=== PATIENT | female | born 1965 | race Caucasian/White ===

== ENCOUNTER 2019-11-16 10:49 | Outpatient (REF) | payer OTHER, SELFPAY ==
[2019-11-16 16:32] LABS: COVID-19 Test Negative (Negative)
== END 2019-11-16 10:50 | disposition home or self-care (01) ==
LOC: HO.LABR 10:49
PROVIDERS: PCP Nurse Practitioner Family; Visit Provider Internal Medicine
DX: Z20.828 Contact with and (suspected) exposure to other viral communicable diseases (principal)
CPT/HCPCS: 36415; 87635

== ENCOUNTER 2019-12-21 13:51 | Outpatient (REF) | payer OTHER, SELFPAY ==
[2019-12-21 14:48] LABS: MANUAL DIFF FLAG NO
[2019-12-21 14:57] LABS: Basophils Absolute Auto 0.1 X10*3/uL (0.0-0.2); Basophils Percent Auto 0.7 % (0-2); Eosinophils Absolute Auto 0.3 X10*3/uL (0.0-0.4); Eosinophils Percent Auto 3.3 % (0-4); Hematocrit 39.5 % (37-47); Hemoglobin 13.2 g/dl (12.0-16.0); Imm Gran Abs Auto 0.07 X10*3/uL (0.00-0.03); Imm Gran Pct Auto 0.7 % (0.0-0.4); Lymphocytes Absolute Auto 3.2 X10*3/uL (1.2-4.9); Lymphocytes Percent Auto 33.4 % (20-40); Mean Corpuscular HGB Conc 33.4 g/dl (31.0-35.0); Mean Corpuscular Volume 95.6 fL (80-98); Mean Platelet Volume 11.2 fL (9.4-12.3); Monocytes Absolute Auto 0.8 X10*3/uL (0.1-1.2); Monocytes Percent Auto 7.9 % (2-11); Neutrophils Absolute Auto 5.2 X10*3/uL (2.0-8.3); Platelet Count 262 X10*3/uL (160-400); Red Blood Count 4.13 X10*6/uL (4.20-5.50); Red Cell Distribution Width 12.5 % (11.0-16.0); White Blood Count 9.6 X10*3/uL (4.8-10.8)
[2019-12-21 15:27] LABS: Alanine Aminotransferase 16 U/L (0-31); Albumin Level 4.2 g/dL (3.5-5.0); Alkaline Phosphatase 42 U/L (39-117); Anion Gap 13 (12-20); Aspartate Amino Transferase 15 U/L (5-31); Bilirubin Total 0.4 mg/dL (0.0-1.0); Blood Urea Nitrogen 14 mg/dL (9-16); Carbon Dioxide 27 mmol/L (22-29); Chloride 105 mmol/L (96-108); Cholesterol 255 mg/dL; Estimated Glomerular Filt Rate > 60; Glucose Random 90 mg/dL (60-115); HDL Cholesterol 42 mg/dL; LDL Cholesterol Calculated 138 mg/dl; Potassium 3.8 mmol/l (3.3-5.1); Sodium 141 mmol/L (135-145); Total Protein 6.4 g/dL (6.5-8.0); Triglycerides 379 mg/dL
[2019-12-21 15:47] LABS: TSH reflex Free T4 1.46 mIU/mL (0.32-4.0); Vitamin D 25-OH Total 73.9 ng/mL (>30)
== END 2019-12-21 13:52 | disposition home or self-care (01) ==
LOC: HO.LAB 13:51
PROVIDERS: PCP Nurse Practitioner Family; Visit Provider Nurse Practitioner Family
DX: Z13.1 Encounter for screening for diabetes mellitus (principal); Z13.0 Encounter for screening for diseases of the blood and blood-forming organs and certain disorders involving the immune mechanism; Z13.220 Encounter for screening for lipoid disorders; E55.9 Vitamin D deficiency, unspecified; E03.9 Hypothyroidism, unspecified
CPT/HCPCS: 36415; 80053; 80061; 82306; 84443; 85025

== ENCOUNTER 2020-01-12 12:26 | Outpatient (REF) | payer OTHER, SELFPAY ==
[2020-01-12 14:05] LABS: MANUAL DIFF FLAG NO
[2020-01-12 14:16] LABS: Basophils Absolute Auto 0.1 X10*3/uL (0.0-0.2); Basophils Percent Auto 0.6 % (0-2); Eosinophils Absolute Auto 0.3 X10*3/uL (0.0-0.4); Hematocrit 40.2 % (37-47); Hemoglobin 13.9 g/dl (12.0-16.0); Imm Gran Pct Auto 1.2 % (0.0-0.4); Lymphocytes Percent Auto 24.4 % (20-40); Mean Corpuscular HGB Conc 34.6 g/dl (31.0-35.0); Mean Corpuscular Hemoglobin 33.2 pg (27.0-33.0); Mean Corpuscular Volume 95.9 fL (80-98); Monocytes Absolute Auto 0.6 X10*3/uL (0.1-1.2); Monocytes Percent Auto 7.2 % (2-11); Neutrophils Absolute Auto 5.1 X10*3/uL (2.0-8.3); Neutrophils Percent Auto 62.6 % (45-73); Platelet Count 256 X10*3/uL (160-400); Red Blood Count 4.19 X10*6/uL (4.20-5.50); Red Cell Distribution Width 12.5 % (11.0-16.0); White Blood Count 8.1 X10*3/uL (4.8-10.8)
[2020-01-12 14:45] LABS: Alanine Aminotransferase 17 U/L (0-31); Alkaline Phosphatase 39 U/L (39-117); Anion Gap 12 (12-20); Aspartate Amino Transferase 15 U/L (5-31); Bilirubin Total 0.4 mg/dL (0.0-1.0); Blood Urea Nitrogen 13 mg/dL (9-16); Calcium 8.8 mg/dL (8.4-10.2); Carbon Dioxide 22 mmol/L (22-29); Chloride 107 mmol/L (96-108); Estimated Glomerular Filt Rate > 60; Glucose Random 85 mg/dL (60-115); Potassium 4.2 mmol/l (3.3-5.1); Sodium 137 mmol/L (135-145); Total Protein 6.2 g/dL (6.5-8.0)
[2020-01-12 15:09] LABS: Ferritin 33 ng/mL (10-250)
[2020-01-13 21:32] LABS: DHEA Sulfate 94 mcg/dL (8-188); Sex Hormone Binding Globulin 63 nmol/L (17-124)
[2020-01-15 23:23] LABS: Estradiol Ultra Sensitive 111 pg/mL
[2020-01-16 23:02] LABS: Estrone 65 pg/mL
[2020-01-17 01:43] LABS: Dihydrotestosterone 12 ng/dL (< OR = 20)
[2020-01-17 17:08] LABS: Testosterone, Free 5.7 pg/mL (0.1-6.4); Testosterone, Total 54 ng/dL (2-45)
[2020-01-18 22:53] LABS: Progesterone 1.7 ng/mL
== END 2020-01-12 12:27 | disposition home or self-care (01) ==
LOC: HO.10HDL 12:26
PROVIDERS: Visit Provider Neuromusculoskeletal Medicine & OMM
DX: E34.9 Endocrine disorder, unspecified (principal)
CPT/HCPCS: 36415; 80053; 82627; 82642; 82670; 82679; 82728; 84144; 84270; 84402; 84403; 85025

== ENCOUNTER 2020-02-15 09:40 | Outpatient (REF) | payer OTHER, SELFPAY ==
--- NOTE | 2020-02-15 09:46 | MM_ITS ---
EXAMINATION: MM DIAGNOSTIC DIGITAL BREAST TOMOSYNTHESIS, BILATERAL US DIAGNOSTIC ULTRASOUND BREAST, RIGHT CLINICAL INFORMATION: Palpable fullness upper outer right breast at clinical exam. Due for yearly exam. Prior history benign breast biopsies (fibroadenomas, PASH). The lifetime risk of breast cancer based on the Tyrer-Cuzick Model is 15%. COMPARISON: Outside mammography [facility] (02/02/2019); [facility] (mammography 01/20/2018, 02/05/2017, 01/24/2017); [facility] (ultrasound 07/13/2017, 02/05/2017). TECHNIQUE: Digital breast tomosynthesis is performed in both the craniocaudal and mediolateral oblique views along with computer-aided detection (CAD). Synthesized 2D images are generated from the tomosynthesis. Additional magnification left CC and magnification left ML x2 views are obtained. Ultrasound right breast is targeted to the area of clinical interest upper outer quadrant. Grayscale imaging and color Doppler are performed without and with harmonics. FINDINGS: The breasts are heterogeneously dense, which may obscure small masses (ACR BI-RADS breast composition Category c). Parenchymal pattern is similar to prior studies. There is no developing density or interval mass or architectural abnormality. There are scattered bilateral asymmetries similar to the prior exams. Scattered calcifications in each breast are stable. There are 3 biopsy clip markers again seen upper outer right breast near the area of palpable interest. The axilla and skin contours are unremarkable. Ultrasound right breast demonstrates macrolobulated solid nodule 10:00 position 6 cm from nipple measuring approximately 1.5 x 1.0 x 0.7 cm. This is similar to prior outside ultrasound 08/01/2017 measurements of 1.7 x 1.3 x 0.8 cm. There are 2 small incidental cysts in this vicinity, both just under 5 mm. There is no interval solid or dominant cystic mass or architectural abnormality. No focal duct ectasia in the targeted area. Results are discussed with the patient at time of visit. MM/MM tomosynthesis diagnostic BI IMPRESSION: 1. No significant mammographic changes from prior outside studies. 2. Stable solid nodule upper outer right breast similar to slightly smaller when compared with outside ultrasound 2018. ASSESSMENT: BI-RADS 2: Benign RECOMMENDATION: Routine annual mammography screening. This patient's information was entered into a reminder system with a target due date for their next mammogram.
== END 2020-02-15 09:41 | disposition home or self-care (01) ==
LOC: HO.MAMMO 09:40
PROVIDERS: Visit Provider Obstetrics & Gynecology Gynecology
DX: N63.11 Unspecified lump in the right breast, upper outer quadrant (principal)
CPT/HCPCS: 76642; 77062; 77066

== ENCOUNTER 2020-02-16 12:28 | Outpatient (REF) | payer OTHER, SELFPAY ==
[2020-02-16 15:02] LABS: Vitamin D 25-OH Total 80.7 ng/mL (>30)
[2020-02-17 15:07] LABS: Follicle Stimulating Hormone 49.4 mIU/mL; Lutenizing Hormone 24.9 mIU/mL
[2020-02-21 22:43] LABS: Estradiol Ultra Sensitive 18 pg/mL
== END 2020-02-16 12:29 | disposition home or self-care (01) ==
LOC: HO.10HDL 12:28
PROVIDERS: Visit Provider Obstetrics & Gynecology Gynecology
DX: N95.1 Menopausal and female climacteric states (principal)
CPT/HCPCS: 36415; 82306; 82670; 83001; 83002

== ENCOUNTER 2020-04-12 09:31 | Outpatient (REF) | payer OTHER, SELFPAY ==
--- NOTE | ~2020-04-12 | MR_ITS ---
EXAMINATION: MR LUMBAR SPINE WITHOUT AND WITH CONTRAST CLINICAL INFORMATION: Persistent low back pain. Right leg/foot weakness. COMPARISON: Lumbar spine MRI 12/24/2018. Lumbar spine MRI 12/20/2018. TECHNIQUE: MRI of the lumbar spine was obtained using routine sequences with and without contrast. Intravenous contrast: 7 mL of Gadavist FINDINGS: There are 5 nonrib-bearing lumbar-type vertebral bodies. There is grade 1 retrolisthesis of L3 on L4 and L4 on L5. Vertebral body heights are maintained. Chronic endplate Schmorl's nodes at the lower thoracic levels and at all lumbar levels. There is no bone marrow edema. There are no acute fractures. Disc volumes are preserved. There is partial disc desiccation at the L2-L3, L3-L4, and L4-L5 levels. The conus terminates at the L1 level. There are no significant soft tissue findings. There is no pathologic enhancement along the cauda equina nerve roots. L1-L2: Shallow central disc protrusion mildly indents the ventral thecal sac. Bilateral facet arthropathy. No central canal stenosis and no foraminal stenosis. Findings unchanged. L2-L3: Small annular disc bulge and mild bilateral facet arthropathy. No central canal stenosis and no foraminal stenosis. Findings unchanged. L3-L4: Small annular disc bulge and bilateral facet arthropathy. There is no central canal stenosis and there is no foraminal stenosis. There is a small ventral annular fissure. Findings unchanged. L4-L5: There is a diffuse annular disc bulge and there is bilateral facet arthropathy and ligamentum flavum thickening. There are left hemilaminectomy and microdiscectomy changes. No residual left paracentral disc protrusion. There is enhancing granulation/scar tissue within the left epidural space that contacts the traversing left L5 nerve root. Mild bilateral foraminal encroachment. A right lateral disc protrusion at this level contacts and may result in mass effect on the extraforaminal right L4 nerve root, similar to the previous study. L5-S1: Diffuse annular disc bulge and bilateral facet arthropathy. No central canal stenosis. MR/MR lumbar spine wo/w con IMPRESSION: At L4-L5, there are postoperative changes following left hemilaminectomy and microdiscectomy. There is no residual left paracentral disc protrusion. There is enhancing granulation/scar tissue within the left subarticular zone inseparable from the traversing left L5 nerve root. A right lateral disc protrusion at this level contacts and may result in mass effect on the extraforaminal right L4 nerve root, similar to the previous study.
== END 2020-04-12 09:32 | disposition home or self-care (01) ==
LOC: HO.MRI 09:31
PROVIDERS: Visit Provider Physician Assistant
DX: M54.5 Low back pain (principal); M76.11 Psoas tendinitis, right hip; R29.898 Other symptoms and signs involving the musculoskeletal system; Z98.890 Other specified postprocedural states
CPT/HCPCS: 72158; A9585

== ENCOUNTER 2020-09-13 10:40 | Outpatient (REF) | payer OTHER, SELFPAY ==
[2020-09-13 13:25] LABS: Hematocrit 40.4 % (37-47); Hemoglobin 13.6 g/dl (12.0-16.0); Mean Corpuscular HGB Conc 33.7 g/dl (31.0-35.0); Mean Corpuscular Hemoglobin 31.3 pg (27.0-33.0); Mean Corpuscular Volume 93.1 fL (80-98); Mean Platelet Volume 11.5 fL (9.4-12.3); Platelet Count 291 X10*3/uL (160-400); Red Blood Count 4.34 X10*6/uL (4.20-5.50); Red Cell Distribution Width 12.5 % (11.0-16.0); White Blood Count 8.4 X10*3/uL (4.8-10.8)
[2020-09-13 13:43] LABS: Alanine Aminotransferase 22 U/L (0-31); Albumin Level 4.8 g/dL (3.5-5.0); Alkaline Phosphatase 54 U/L (39-117); Anion Gap 14 (12-20); Aspartate Amino Transferase 20 U/L (5-31); Bilirubin Total 0.4 mg/dL (0.0-1.0); Blood Urea Nitrogen 8 mg/dL (9-16); Carbon Dioxide 25 mmol/L (22-29); Chloride 107 mmol/L (96-108); Estimated Glomerular Filt Rate > 60; Glucose Random 89 mg/dL (60-115); Potassium 3.8 mmol/L (3.3-5.1); Sodium 142 mmol/L (135-145); Total Protein 7.3 g/dL (6.5-8.0)
[2020-09-13 13:59] LABS: Ferritin 74 ng/mL (10-250); Thyroid Stimulating Hormone 0.91 uIU/mL (0.32-4.0)
[2020-09-13 14:37] LABS: T4 Thyroxine 7.5 ug/dL (4.5-12.0)
[2020-09-14 15:37] LABS: Triiodothyronine T3 Free 3.2 pg/mL (2.3-4.2); Triiodothyronine T3 Total 122 ng/dL (76-181)
[2020-09-14 17:01] LABS: DHEA Sulfate 335 mcg/dL (8-188); Sex Hormone Binding Globulin 64 nmol/L (17-124)
[2020-09-17 12:27] LABS: Triiodothyronine T3 Reverse 13 ng/dL (8-25)
[2020-09-17 18:56] LABS: Progesterone 2.8 ng/mL
[2020-09-17 19:47] LABS: Estrone 23 pg/mL
[2020-09-18 00:10] LABS: Dihydrotestosterone 9 ng/dL (< OR = 20)
[2020-09-18 16:40] LABS: Testosterone, Free 4.1 pg/mL (0.1-6.4); Testosterone, Total 41 ng/dL (2-45)
[2020-09-18 21:56] LABS: Estradiol Ultra Sensitive 4 pg/mL
== END 2020-09-13 10:41 | disposition home or self-care (01) ==
LOC: HO.10HDL 10:40
PROVIDERS: Visit Provider Neuromusculoskeletal Medicine & OMM
DX: E34.9 Endocrine disorder, unspecified (principal)
CPT/HCPCS: 36415; 80053; 82627; 82642; 82670; 82679; 82728; 84144; 84270; 84402; 84403; 84436; 84443; 84480; 84481; 84482; 85027

== ENCOUNTER 2021-01-20 11:07 | Outpatient (REF) | payer OTHER, SELFPAY ==
[2021-01-20 14:59] LABS: Vitamin D 25-OH Total 37.5 ng/mL (>30)
[2021-01-23 21:12] LABS: DHEA Sulfate 74 mcg/dL (8-188)
[2021-01-23 21:16] LABS: Estradiol Ultra Sensitive 37 pg/mL
[2021-01-25 14:36] LABS: Testosterone, Total 153 ng/dL (2-45)
[2021-01-25 19:00] LABS: Progesterone 2.3 ng/mL
[2021-01-29 16:01] LABS: Estrogen 305.5 pg/mL
== END 2021-01-20 11:08 | disposition home or self-care (01) ==
LOC: HO.WFDLDS 11:07
PROVIDERS: Visit Provider Neuromusculoskeletal Medicine & OMM
DX: E34.9 Endocrine disorder, unspecified (principal); R53.83 Other fatigue
CPT/HCPCS: 36415; 82306; 82627; 82670; 82672; 84144; 84403

== ENCOUNTER 2021-02-08 12:19 | Outpatient (REF) | payer OTHER, SELFPAY ==
[2021-02-08 14:26] LABS: Amphetamine Screen Urine Not Detected (Not Detect); Barbiturates, Urine Not Detected (Not Detect); Benzodiazepines Screen Urine POSITIVE (Not Detect); Cannabinoid Screen Urine Not Detected (Not Detect); Cocaine Screen Urine Not Detected (Not Detect); Fentanyl, urine Not Detected (Not Detect); Opiate Screen Urine Not Detected (Not Detect); Phencyclidine Screen Urine Not Detected (Not Detect)
[2021-02-09 08:08] LABS: ~HepC Num1 0.07 S/CO (0.00-0.79); ~Hepatitis C Antibody Nonreactive (Nonreactive)
[2021-02-12 10:42] LABS: EDDP (Methadone Metabolite) negative; Methadone, Urine MS negative
== END 2021-02-08 12:20 | disposition home or self-care (01) ==
LOC: HO.WFDLDS 12:19
PROVIDERS: Visit Provider Nurse Practitioner Family
DX: Z00.00 Encounter for general adult medical examination without abnormal findings (principal); Z79.899 Other long term (current) drug therapy
CPT/HCPCS: 80307; 80358; 86803

== ENCOUNTER 2021-02-15 18:43 | Outpatient (REF) | payer OTHER, SELFPAY ==
--- NOTE | ~2021-02-15 | MR_ITS ---
EXAMINATION: MR LUMBAR SPINE WITHOUT AND WITH CONTRAST CLINICAL INFORMATION: Low back pain radiating to the right leg. COMPARISON: Lumbar spine MRI 04/12/2020. TECHNIQUE: MRI of the lumbar spine was obtained using routine sequences without and with intravenous contrast. A total of 7 mL Gadavist was intravenously administered. FINDINGS: The lumbar vertebral bodies maintain normal heights and alignment. There is mild disc height loss at L2-L3, L3-L4, and L4-L5. No marrow edema is seen. The distal spinal cord appears normal. The conus medullaris terminates normally at the L1-L2 level. No abnormal cauda equina nerve root enhancement is seen. The visualized paraspinal muscles and intra-abdominal and pelvic contents are within normal limits. SPINAL LEVELS: L1-L2: Shallow left subarticular protrusion. No spinal canal or neural foraminal stenosis. L2-L3: No posterior disc abnormality. Mild facet arthropathy. No spinal canal or neural foraminal stenosis. L3-L4: Mild disc bulging with mild facet arthropathy. No spinal canal or neural foraminal stenosis. L4-L5: Left hemilaminectomy changes. Moderate facet arthropathy. Left subarticular protrusion compresses the traversing left L5 nerve root. Mild narrowing of the right neural foramen. No spinal canal stenosis. L5-S1: No posterior disc abnormality. Moderate facet arthropathy. No spinal canal or neural foraminal stenosis. MR/MR lumbar spine wo/w con IMPRESSION: At L4-L5 there is new left subarticular protrusion resulting in compression of the traversing left L5 nerve root. Mild right neural foraminal stenosis. Additional mild spondylotic changes are noted without significant narrowing of the spinal canal or neural foramina.
== END 2021-02-15 18:44 | disposition home or self-care (01) ==
LOC: HO.MRI 18:43
PROVIDERS: Visit Provider Physician Assistant
DX: M54.41 Lumbago with sciatica, right side (principal); M79.604 Pain in right leg
CPT/HCPCS: 72158; A9585

== ENCOUNTER 2021-03-07 11:34 | Outpatient (REF) | payer OTHER, SELFPAY ==
[2021-03-07 14:52] LABS: Free T4 (Free Thyroxine) 1.02 ng/dL (0.71-1.85); T4 Thyroxine 7.6 ug/dL (4.5-12.0); Thyroid Stimulating Hormone 0.79 uIU/mL (0.32-4.0)
[2021-03-08 18:11] LABS: Triiodothyronine T3 Free 3.1 pg/mL (2.3-4.2); Triiodothyronine T3 Total 128 ng/dL (76-181)
[2021-03-11 13:41] LABS: Triiodothyronine T3 Reverse 13 ng/dL (8-25)
== END 2021-03-07 11:35 | disposition home or self-care (01) ==
LOC: HO.WFDLDS 11:34
PROVIDERS: Visit Provider Neuromusculoskeletal Medicine & OMM
DX: E34.9 Endocrine disorder, unspecified (principal)
CPT/HCPCS: 36415; 84436; 84439; 84443; 84480; 84481; 84482

== ENCOUNTER 2021-03-13 14:25 | Outpatient (REF) | payer OTHER, SELFPAY ==
--- NOTE | ~2021-03-13 | MM_ITS ---
EXAMINATION: MM SCREENING DIGITAL BREAST TOMOSYNTHESIS, BILATERAL CLINICAL INFORMATION: Screening. Asymptomatic. Prior history benign biopsies (fibroadenomas; PASH). The lifetime risk of breast cancer based on the Tyrer-Cuzick Model is 11%. COMPARISON: Mammography: 02/15/2020; outside mammography 02/02/2019 ([facility]) and 01/20/2018 ([facility]). TECHNIQUE: Digital breast tomosynthesis is performed in both the craniocaudal and mediolateral oblique views along with computer-aided detection (CAD). Synthesized 2D images are generated from the tomosynthesis. FINDINGS: The breasts are heterogeneously dense, which may obscure small masses (ACR BI-RADS breast composition Category c). Parenchymal pattern is similar to prior exams. Scattered minor parenchymal asymmetries are stable. There is no developing density or interval architectural abnormality or mass. There are 3 biopsy clip markers again seen right breast upper outer quadrant. Small nodule with coarse calcification again noted upper outer quadrant similar to prior exams. There are stable scattered punctate calcifications in each breast. The axilla and skin contours are unremarkable. No significant changes. MM/MM tomosynthesis screening BI IMPRESSION: No significant changes from prior studies. ASSESSMENT: BI-RADS 2: Benign RECOMMENDATION: Routine annual mammography screening. This patient's information was entered into a reminder system with a target due date for their next mammogram.
== END 2021-03-13 14:26 | disposition home or self-care (01) ==
LOC: HO.MAMMO 14:25
PROVIDERS: Absent Provider Obstetrics & Gynecology Gynecology; PCP Nurse Practitioner Family; Visit Provider Nurse Practitioner Family
DX: Z12.31 Encounter for screening mammogram for malignant neoplasm of breast (principal)
CPT/HCPCS: 77063; 77067